=== PATIENT | female | born 1925 | race Caucasian/White ===

== ENCOUNTER 2016-08-10 19:38 | Emergency (ER) | payer MEDICAID, OTHER ==
[2016-08-10 21:56] VITALS: TEMP 98.8
[2016-08-10 21:57] VITALS: BP 131/77; PULSE 72; RESP 20; O2SAT 95
== END 2016-08-10 21:50 | disposition home or self-care (01) | DRG 605 ==
LOC: ED 19:38
DX: T14.8 Other injury of unspecified body region (principal); W19.XXXA Unspecified fall, initial encounter; Y92.129 Unspecified place in nursing home as the place of occurrence of the external cause
CPT/HCPCS: 71101; 72120; 99282

== ENCOUNTER 2016-08-15 14:02 | Emergency (ER) | payer OTHER ==
[2016-08-15 15:08] VITALS: TEMP 96.9
[2016-08-15] MEDS ORDERED: TRAMADOL HYDROCHLORIDE 50 MG TAB ONE (16:34)
[2016-08-15] MEDS ORDERED: ACETAMINOPHEN 325 MG ONE (16:35)
[2016-08-15] MEDS ORDERED: ACETAMINOPHEN 325 MG PO ONE (16:35)
[2016-08-15] MEDS ORDERED: TRAMADOL HYDROCHLORIDE 50 MG TAB PO ONE (16:36)
[2016-08-15 17:11] VITALS: BP 154/80; PULSE 81; RESP 24; O2SAT 93
== END 2016-08-15 16:42 | disposition home or self-care (01) | DRG 563 ==
LOC: ED 14:02
DX: S52.501A Unspecified fracture of the lower end of right radius, initial encounter for closed fracture (principal); S52.601A Unspecified fracture of lower end of right ulna, initial encounter for closed fracture; W01.0XXA Fall on same level from slipping, tripping and stumbling without subsequent striking against object, initial encounter; R07.81 Pleurodynia; M25.552 Pain in left hip
CPT/HCPCS: 29125; 71100; 72170; 73110; 73502; 99282; 99284

== ENCOUNTER 2016-08-19 08:01 | Day surgery (SDC) | payer OTHER ==
[2016-08-19] MEDS ORDERED: LIDOCAINE HCL 1% MPF SOL ONE ×2 (08:10→08:11)
[2016-08-19] MEDS ORDERED: FENTANYL CITRATE 50 MCG/ML SOL ONE (08:11)
[2016-08-19] MEDS ORDERED: PROPOFOL 500 MG/50 ML EMU IV ONE (08:12)
[2016-08-19] MEDS ORDERED: BUPIVACAINE/EPI 0.5% 10 ML SOL INFIL ONE (08:23)
[2016-08-19] MEDS ORDERED: KETOROLAC TROMETHAMINE 30 MG/ML SOL ONE (08:58)
[2016-08-19 12:07] VITALS: O2SAT 92
[2016-08-19 12:45] VITALS: RESP 18; TEMP 97.2
[2016-08-19 15:40] VITALS: BP 140/64; PULSE 72
== END 2016-08-19 15:34 | DRG 563 ==
LOC: SURG 08:01
PROVIDERS: ATTEND Orthopaedic Surgery
DX: S52.501A Unspecified fracture of the lower end of right radius, initial encounter for closed fracture (principal)
CPT/HCPCS: 73100; 76000; J1885; J3010; A6402; J2001; J2704

== ENCOUNTER 2016-08-26 12:03 | Outpatient (CLI) | payer OTHER | END 2016-08-26 12:04 | disposition home or self-care (01) | DRG 561 | LOC: CONVCARE 12:03 | PROVIDERS: ATTEND Orthopaedic Surgery | DX: S52.531D Colles' fracture of right radius, subsequent encounter for closed fracture with routine healing (principal) | CPT/HCPCS: 73110 ==

== ENCOUNTER 2016-08-29 08:47 | Outpatient (CLI) | payer OTHER | END 2016-08-29 08:48 | disposition home or self-care (01) | DRG 561 | LOC: CONVCARE 08:47 | PROVIDERS: ATTEND Orthopaedic Surgery | DX: S52.501D Unspecified fracture of the lower end of right radius, subsequent encounter for closed fracture with routine healing (principal) | CPT/HCPCS: 73110 ==

== ENCOUNTER 2016-09-26 09:31 | Outpatient (CLI) | payer OTHER | END 2016-09-26 09:32 | disposition home or self-care (01) | DRG 561 | LOC: CONVCARE 09:31 | PROVIDERS: ATTEND Orthopaedic Surgery | DX: S52.501D Unspecified fracture of the lower end of right radius, subsequent encounter for closed fracture with routine healing (principal) | CPT/HCPCS: 73110 ==

== ENCOUNTER 2016-10-28 11:38 | Outpatient (CLI) | payer OTHER | END 2016-10-28 11:39 | disposition home or self-care (01) | DRG 561 | LOC: CONVCARE 11:38 | PROVIDERS: ATTEND Orthopaedic Surgery | DX: S52.91XD Unspecified fracture of right forearm, subsequent encounter for closed fracture with routine healing (principal) | CPT/HCPCS: 73100 ==